=== PATIENT | female | born 1960 | race Caucasian/White ===

== ENCOUNTER → 2018-09-09 | Outpatient (CLI) | payer OTHER ==
[2015-05-05 12:45] VITALS: BP 150/80
[~2018-09-09] MED LIST: CALC-52 PO; CEPH-263 PO; ESTR1TAB39 PO; HYDR-3164 PO; NAPR-683 PO; NAPR220C4 PO; OMEP40CA2 PO; PHEN37.53 PO; SIMV10TA3 PO; THYR30TA PO; ZOLP10TA4 PO
--- NOTE | 2018-09-09 13:26 | KCIC ---
CERVICAL SPINE WO CONTRAST DATE: 09/09/2018 9:30 AM INDICATION: Neck pain for one year. Bilateral upper extremity and bilateral lower extremity paresthesias. TECHNIQUE: Multiplanar multisequence magnetic resonance imaging of the cervical spine was performed without administration of intravenous contrast using the standard cervical spine protocol. COMPARISON: None. FINDINGS: Straightening of the cervical lordosis. Trace retrolisthesis at C3-4 and C4-5. No acute fracture. Mild multilevel degenerative disc desiccation and disc height loss. No marrow replacing process to suggest malignancy. The spinal cord is normal in signal intensity. On the limited views of the cranial cavity and brain, the cerebellum and tony have normal morphology and signal characteristics. No Chiari malformation. No soft tissue abnormality. Normal signal voids are present in the vertebral arteries. C2-3: Disc osteophyte complex. Uncovertebral hypertrophy. Mild facet arthropathy. No significant spinal stenosis or neural foraminal narrowing. C3-4: Disc osteophyte complex. Uncovertebral hypertrophy. Moderate right and mild left facet arthropathy. Severe right and mild left neuroforaminal narrowing. No significant spinal stenosis. C4-5: Disc osteophyte complex. Uncovertebral hypertrophy. Mild right and moderate left facet arthropathy. Mild foraminal narrowing. No significant spinal stenosis. C5-6: Disc osteophyte complex. Uncovertebral hypertrophy. Mild facet arthropathy. Ligamentum flavum thickening. Moderate right and severe left neural foraminal narrowing. Moderate spinal stenosis. C6-7: Disc osteophyte complex. Uncovertebral hypertrophy. Mild bilateral neural foraminal narrowing. Mild spinal stenosis. C7-T1: Mild right facet arthropathy. No significant spinal canal stenosis or neural foraminal narrowing. IMPRESSION: Cervical spondylosis, detailed level by level above. Electronically signed by: Bharat Colón MD (09/09/2018 1:23 PM) [id number]
== END | disposition home or self-care (01) ==
LOC: KCIC MRI 09:17
PROVIDERS: ATTEND Family Medicine
DX: M47.812 Spondylosis without myelopathy or radiculopathy, cervical region (principal); M48.02 Spinal stenosis, cervical region; M25.78 Osteophyte, vertebrae; M12.88 Other specific arthropathies, not elsewhere classified, other specified site; M50.30 Other cervical disc degeneration, unspecified cervical region
CPT/HCPCS: 72141